=== PATIENT | male | born 1970 | race Hispanic/Latino ===

== ENCOUNTER 2017-08-17 10:02 | Day surgery (SDC) | payer MEDICAID ==
--- NOTE | 2017-08-13 10:02 | Anesthesia Consultation ---
Anesthesia Consult and Med Hx Date of service: 08/13/17 - Airway Anesthetic Teeth Evaluation: Bridges ROM Head & Neck: Adequate Mental/Hyoid Distance: Adequate Mallampati Class: Class II Intubation Access Assessment: Good - Pulmonary Exam CTA: Yes - Cardiac Exam Cardiac Exam: No Murmur - Pre-Operative Health Status ASA Pre-Surgery Classification: ASA2 Proposed Anesthetic Plan: General - Pulmonary Hx Smoking: Yes (pateint quit) Hx Sleep Apnea: No - Central Nervous System Hx Psychiatric Problems: Yes (MILD TO MODERATE RETARDATION) - Gastrointestinal Hx Gastroesophageal Reflux Disease: (abdominal pain, constipation, and dysphagia) - Endocrine Hx Renal Disease: No Hx Liver Disease: No Hx Thyroid Disease: No - Other Systems Hx Cancer: No
[2017-08-13 10:06] LABS: Basophils % (Auto) 0.3 % (0.0-1.8); Eosinophils # (Auto) 0.2 K/mm3 (0.0-0.4); Eosinophils % (Auto) 1.5 % (0.0-4.3); Hematocrit 40.4 % (35.5-45.6); Hemoglobin 13.7 gm/dl (11.8-15.2); Lymphocytes # (Auto) 1.8 K/mm3 (1.2-5.4); Lymphocytes % (Auto) 16.1 % (13.4-35.0); Mean Corpuscular HGB Conc 34 % (32-34); Mean Corpuscular Hemoglobin 29 pg (28-32); Mean Corpuscular Volume 86 fl (84-94); Monocytes # (Auto) 0.6 K/mm3 (0.0-0.8); Monocytes % (Auto) 5.1 % (0.0-7.3); Platelet Count 276 K/mm3 (140-440); Red Blood Count 4.72 M/mm3 (3.65-5.03); Red Cell Distribution Width 13.7 % (13.2-15.2)
[2017-08-13 10:33] LABS: Alanine Aminotransferase 16 units/L (7-56); Albumin 4.3 g/dL (3.9-5); BUN/Creatinine Ratio 15; Blood Urea Nitrogen 12 mg/dL (9-20); Calcium 9.4 mg/dL (8.4-10.2); Hemolysis Index 4
[~2017-08-17 10:02] MED LIST: PEPCID PO NR
[2017-08-17] MEDS ORDERED: LACTATED RINGERS 1,000 ML IV SCH (11:00)
[2017-08-17] MEDS ORDERED: NACL BACTERIOSTATIC INFILTRATI ONE (11:18)
[2017-08-17] MEDS ORDERED: ANCEF/STERILE WATER 2 GM/20 ML 2 GM/20 ML SYRINGE IV SCH (12:00)
[2017-08-17] MEDS ORDERED: ceFAZolin 2 GM in NACL 0.9% 100 ML IV ONE (12:00)
[2017-08-17] MEDS ORDERED: ZEMURON IV ONE (12:35)
[2017-08-17] MEDS ORDERED: DIPRIVAN 10 MG/ML IV ONE (12:35)
[2017-08-17] MEDS ORDERED: XYLOCAINE MPF 2% ONE (12:35)
[2017-08-17] MEDS ORDERED: SUBLIMAZE ONE (12:35)
[2017-08-17] MEDS ORDERED: MARCAINE 0.25% INFILTRATI ONE ×3 (13:12→13:14)
[2017-08-17] MEDS ORDERED: MARCAINE 0.5% 30 ML INFILTRATI ONE (13:15)
[2017-08-17] MEDS ORDERED: MARCAINE 0.5% INFILTRATI ONE ×2 (13:36)
[2017-08-17] MEDS ORDERED: NACL 0.9% IR ONE ×2 (13:36→13:46)
[2017-08-17] MEDS ORDERED: ROBINUL ONE ×2 (13:55→14:10)
[2017-08-17] MEDS ORDERED: NEOSTIGMINE ONE (13:55)
[2017-08-17] MEDS ORDERED: ZOFRAN ONE (14:08)
--- NOTE | 2017-08-17 14:12 | Discharge Summary ---
Short Stay Discharge Plan Activity: other (observe x 6 hrs then august d/c if stable. ice chips today, cl liq in am. solid low fat diet in 48 hrs. keep dressings dry x 5 days. no lifting over 5 lbs x 2 wks) Weight Bearing Status: Non-Weight Bearing Diet: other Wound: keep clean and dry Additional Instructions: aleve I po q 6-8 hrs prn for breakthrough pain. Call if any N, V or abd pain develops. rto I wk Follow up with: TENZIN GUARDADO MD [Staff Physician] - 7 Days
[2017-08-17] MEDS ORDERED: NORCO 5/325 PO PRN (15:10)
--- NOTE | 2017-08-17 16:49 | Post Anesthesia Evaluation ---
- Post Anesthesia Evaluation Patient Participated: Yes Airway Patent: Yes Stable Respiratory Function: Yes Nausea/Vomiting: No Temp > 96.8F: No Pain Manageable: Yes Adequeate Hydration: Yes Anesthesia Complications: No Block Receding Appropriately: Not Applicable
--- NOTE | 2017-08-17 16:49 | Anesthesia Day of Surgery ---
Anesthesia Day of Surgery - Day of Surgery Patient H&P Reviewed: Yes Patient is NPO: Yes Beta Blockers: Yes Cardiac Clearance: No Pulmonary Clearance: No
--- NOTE | 2017-08-17 17:52 | Operative Report ---
PREOPERATIVE DIAGNOSES: Rule out biliary colic with cholelithiasis. POSTOPERATIVE DIAGNOSES: Rule out biliary colic with cholelithiasis. PROCEDURE: Laparoscopic cholecystectomy. SURGEON: Cali Jennings MD [employer] SH[employer]IFF'S OFFICE: Dr. Ni. ANESTHESIA: General. ESTIMATED BLOOD LOSS: Minimal. DRAINS: No drains. COMPLICATIONS: No complications. PROCEDURE IN DETAIL: The patient was taken to the operating room, prepped and draped in usual sterile fashion. Veress needle was inserted and CO2 insufflation begun. A 5 mm trocar was then inserted and camera inserted. All other trocars were inserted under direct visualization. Gallbladder was then grasped at the fundus and infundibulum and retracted towards the right subphrenic space. Dissection was then carried out along the Calot's triangle. The cystic duct and artery were delineated in their entire course. Both were then doubly clipped and transected. Hook electrocautery was used to dissect the gallbladder from the overlying liver bed. Prior to complete removal, the liver bed was inspected for bleeding and noted to be dry. Cystic duct and artery stumps were once again visualized. The clips were noted to be securely in place with no evidence of bleeding or bile leak. Gallbladder was then completely freed and brought out through the subxiphoid port. This area had to be spread somewhat in the skin, also cut slightly further to the large amount of impacted stones within the gallbladder. This area was inspected for bleeding and noted to be dry. Subxiphoid trocar was then gently inserted. Right upper quadrant of the abdomen was copiously irrigated and suctioned dry. I once again, checked for hemostasis and noted to be dry. The 5 mm ports were removed under direct visualization. No bleeding or oozing was noted. The subxiphoid trocar was then used to expel the CO2 and the trocar removed. The fascia at this site was closed with a [id number] 0 Vicryl suture. The skin at all port sites was closed with subcuticular 4-0 Vicryl. A 0.5% Marcaine was infiltrated over the areas for postoperative pain relief. The patient tolerated the procedure well and left the OR in stable condition. JOB# [id number] SMITA/ASPEN
[2017-08-17 21:43] VITALS: BP 135/65
== END 2017-08-17 19:12 ==
LOC: OR 10:02
PROVIDERS: ATTEND Surgery
DX: K80.10 Calculus of gallbladder with chronic cholecystitis without obstruction (principal); K21.9 Gastro-esophageal reflux disease without esophagitis; I10 Essential (primary) hypertension; E78.5 Hyperlipidemia, unspecified; F71 Moderate intellectual disabilities; Z87.891 Personal history of nicotine dependence
CPT/HCPCS: 36415; 47562; 80053; 82150; 85025; 88304; A4217; J2405; J2704; J2710; J3010; J7120